=== PATIENT | female | born 1955 | race Caucasian/White ===

== ENCOUNTER 2017-09-06 07:34 | Day surgery (SDC) | payer OTHER ==
[~2017-09-06] VITALS: Ht 162.6 cm; Wt 70.8 kg
[~2017-09-06 07:34] MED LIST: ALPR-410 PO; BUPR150T8 PO; DULO60CA63 PO; SODIUM CHLORIDE 0.9% 1000ML 1,000 ML IV ONE; VALA500T38 PO; VALS1TAB79 PO; ZALE10CA26 PO
[2017-09-06 07:46] VITALS: BP 139/76
[2017-09-06] MEDS ORDERED: IBUP200C76 PO (08:32)
[2017-09-06] MEDS ORDERED: FENTANYL CITRATE PF 50 MCG/1 ML 2ML VIAL ONE (09:18)
[2017-09-06] MEDS ORDERED: PROPOFOL 10 MG/ML 20ML VIAL IV ONE (09:19)
== END 2017-09-06 10:09 | disposition home or self-care (01) ==
LOC: ENDO 07:34 → DAH 07:34 → ENDO 10:09
PROVIDERS: ATTEND Internal Medicine Gastroenterology
DX: Z12.11 Encounter for screening for malignant neoplasm of colon (principal); Q43.8 Other specified congenital malformations of intestine; K21.9 Gastro-esophageal reflux disease without esophagitis; I10 Essential (primary) hypertension; F32.9 Major depressive disorder, single episode, unspecified; Z98.890 Other specified postprocedural states; Z83.3 Family history of diabetes mellitus; Z82.49 Family history of ischemic heart disease and other diseases of the circulatory system; Z88.0 Allergy status to penicillin
CPT/HCPCS: 45378; A4606; J2704; J3010; J7030